=== PATIENT | female | born 1970 | race Caucasian/White ===

== ENCOUNTER → 2023-09-22 12:24 | Outpatient (REF) | payer BC, SELFPAY | LOC: HWWDC 12:24 | PROVIDERS: ATTENDING PHYSICIAN Obstetrics & Gynecology; FAMILY PHYSICIAN Family Medicine | DX: Z12.31 Encounter for screening mammogram for malignant neoplasm of breast (principal) | CPT/HCPCS: 77063; 77067 ==

== ENCOUNTER → 2024-06-28 09:09 | Outpatient (REF) | payer BC, SELFPAY | LOC: WDC 09:09 | PROVIDERS: ATTENDING PHYSICIAN Registered Nurse; FAMILY PHYSICIAN Family Medicine | DX: N64.4 Mastodynia (principal) | CPT/HCPCS: 76642; 77061; 77065 ==

== ENCOUNTER → 2024-11-15 06:46 | Outpatient (REF) | payer BC, SELFPAY | LOC: HWWDC 06:46 | PROVIDERS: ATTENDING PHYSICIAN Registered Nurse; FAMILY PHYSICIAN Family Medicine | DX: Z12.31 Encounter for screening mammogram for malignant neoplasm of breast (principal) | CPT/HCPCS: 77063; 77067 ==

== ENCOUNTER → 2025-07-26 20:07 | Outpatient (REF) | payer BC, SELFPAY | LOC: MRI 3T 20:07 | PROVIDERS: ATTENDING PHYSICIAN Family Medicine | DX: Q44.6 Cystic disease of liver (principal) | CPT/HCPCS: 74181 ==